=== PATIENT | female | born 1980 | race Caucasian/White ===

== ENCOUNTER 2018-05-13 09:43 | Emergency (ER) | payer MEDICAID ==
[~2018-05-13] VITALS: Ht 157.5 cm; Wt 71.8 kg
[~2018-05-13 09:43] MED LIST: ARIP400S2 IM; DIVA500T9 PO; QUET-1 PO; QUET300T2 PO; QUET400T PO
[2018-05-13 09:48] VITALS: BP 143/90
== END 2018-05-13 10:33 | disposition home or self-care (01) ==
LOC: ER 09:44
DX: M54.5 Low back pain (principal); I10 Essential (primary) hypertension; J45.909 Unspecified asthma, uncomplicated; E03.9 Hypothyroidism, unspecified; F15.10 Other stimulant abuse, uncomplicated; Z88.6 Allergy status to analgesic agent
CPT/HCPCS: 99281